=== PATIENT | male | born 1945 | race Caucasian/White ===

== ENCOUNTER 2017-09-30 09:48 | Day surgery (SDC) | payer MEDICARE, BC, OTHER ==
[2017-09-30] MEDS ORDERED: Sodium Chloride 0.9% 10 ML Syringe IV ONE (09:49)
[2017-09-30] MEDS ORDERED: Dexamethasone 4 MG/ML SDV IV ONE (09:49)
[2017-09-30] MEDS ORDERED: Midazolam 1 MG/ML 2 ML SDV IV ONE (09:49)
[2017-09-30] MEDS ORDERED: Acetaminophen 325 MG Tab PO PRN (10:00)
[2017-09-30] MEDS ORDERED: Ondansetron 4 MG/2 ML SDV IVPUSH PRN (10:00)
[2017-09-30] MEDS ORDERED: Phenylephrine 10% Ophth Soln 5 ML Bot EYELF PRN (10:00)
[2017-09-30] MEDS: Proparacaine 0.5% Ophth Soln 15 ML Bottle EYELF ONE (10:03)
[2017-09-30] MEDS: Povidone-Iodine 5% Sterile Ophth Soln 30 ML Bottle EYELF ONE (10:05)
[2017-09-30] MEDS: Moxifloxacin 0.5% Ophth Soln 3 ML Bottle EYELF ONE (10:06)
[2017-09-30] MEDS: Timolol Maleate 0.5% Ophth Soln 5 ML Bottle EYELF ONE (10:08)
[2017-09-30] MEDS: Phenylephrine 10% Ophth Soln 5 ML Bot EYELF ONE (10:08)
[2017-09-30] MEDS: Cataract Ophth Solution EYELF ONE (10:09)
[2017-09-30] MEDS: Sodium Chloride 0.9% 10 ML Syringe FLUSH PRN (10:15)
[2017-09-30] MEDS: Tetracaine HCl/PF 0.5% 4 ML Bottle EYELF ONE (11:02)
[2017-09-30] MEDS: Lidocaine 1% 30 ML SDV ONE (11:02)
[2017-09-30] MEDS: Dexamethasone/Neomycin/Polymyxin B Ophth Oint 3.5 GM Tube EYELF ONE (11:02)
[2017-09-30] MEDS: Apraclonidine 0.5% Ophth Soln 5 ML Bot EYELF ONE (11:03)
[2017-09-30] MEDS: Diclofenac Sodium 0.1% Ophth Soln 5 ML Bottle EYELF ONE (11:03)
[2017-09-30] MEDS: Balanced Salt Solution Ophth Irrig 500 ML Bottle IOCULAR ONE (11:03)
[2017-09-30] MEDS: Chondroitin Sulfate/Hyaluronate Sodium Ophth Inj 0.5 ML Syringe IOCULAR ONE (11:03)
[2017-09-30] MEDS: Vancomycin 500 MG SDV EYELF ONE (11:03)
[2017-09-30 13:27] VITALS: BP 117/75
--- NOTE | 2017-09-30 15:58 | OR ---
DATE: 09/30/2017 PREOPERATIVE DIAGNOSIS: Visually significant mixed cataract, left eye. POSTOPERATIVE DIAGNOSIS: Visually significant mixed cataract, left eye. PROCEDURE: Extracapsular cataract extraction with intraocular lens implant, left eye. ANESTHESIA: Local MAC. COMPLICATIONS: None. INDICATION: Mr. Isaacs was seen in the clinic. His clinical examination reveals visually significant mixed nuclear and cortical cataract. I explained options, I offered cataract surgery, and I explained risks associated including the potential for visual loss. He is symptomatic with difficulty reading, difficulty driving, and difficulty with bright lights and glare. He has requested cataract surgery with a toric implant. OPERATIVE DESCRIPTION: After informed consent was obtained and the risks, benefits, and alternatives were explained, the patient was brought to the operative suite and topical anesthesia was administered. The patient was then prepped and draped in the sterile fashion and attention was placed on the left eye. A sterile lid speculum was placed into the left eye to allow operative exposure. A full-thickness paracentesis was made in the temporal portion of the operative eye. Preservative-free lidocaine 0.1 mL was injected into the anterior chamber followed by viscoelastic. A full-thickness corneal incision was then made into the anterior chamber. A bent needle cystotome was used to create a small aby in the anterior capsule. The capsulorrhexis forceps were then used to create a 360-degree curvilinear capsulorrhexis. The nucleus was then removed using a phacoemulsification handpiece and the remaining cortical material was then removed with irrigation and aspiration handpiece. Following removal of the cortical material, the capsular bag was then inspected and noted to be free of any holes or tears. Viscoelastic was then injected into the capsular bag and the intraocular lens was inserted into the capsular bag. The implant was oriented to correspond with preoperative corneal caicedo made with the patient in the upright position. The viscoelastic material was then removed from both the anterior and posterior chambers and from behind the IOL. The lens and capsular bag were then reinspected. The IOL was well centered and the capsular bag intact. The wound and paracentesis sites were inspected and hydrated with balanced saline solution. Both were found to be self-sealing. The intraocular pressure was assessed digitally and found to be within normal range. A good red reflex was noted at the completion of the procedure. No complications occurred during the operation. At the completion of the procedure, Maxitrol, Voltaren, and Iopidine drops were placed into the operative eye. A sterile eye shield was placed over the operative eye and the patient was transported to the postoperative recovery area having tolerated the procedure well. Postoperative instructions were given along with a postoperative appointment. The patient was advised to call with any questions or concerns. [facility] /[id number]
== END 2017-09-30 12:15 | disposition home or self-care (01) ==
LOC: DL.SDS 09:48
PROVIDERS: ATTEND Ophthalmology
DX: H25.812 Combined forms of age-related cataract, left eye (principal); I25.10 Atherosclerotic heart disease of native coronary artery without angina pectoris; K21.9 Gastro-esophageal reflux disease without esophagitis; E78.5 Hyperlipidemia, unspecified; I10 Essential (primary) hypertension; G47.39 Other sleep apnea; Z90.49 Acquired absence of other specified parts of digestive tract
CPT/HCPCS: 00142; 66984; A9270; J1100; J2250; J3370; J7050; V2787

== ENCOUNTER 2017-10-07 08:35 | Day surgery (SDC) | payer MEDICARE, BC, OTHER ==
[2017-10-07] MEDS ORDERED: Sodium Chloride 0.9% 10 ML Syringe IV ONE (08:36)
[2017-10-07] MEDS ORDERED: Midazolam 1 MG/ML 2 ML SDV IV ONE (08:36)
[2017-10-07] MEDS ORDERED: Dexamethasone 4 MG/ML SDV IV ONE (08:36)
[2017-10-07] MEDS ORDERED: Phenylephrine 10% Ophth Soln 5 ML Bot EYERT ONE (09:00)
[2017-10-07] MEDS ORDERED: Cataract Ophth Solution EYERT ONE (09:00)
[2017-10-07] MEDS ORDERED: Ondansetron 4 MG/2 ML SDV IVPUSH PRN (09:00)
[2017-10-07] MEDS ORDERED: Sodium Chloride 0.9% 10 ML Syringe FLUSH PRN (09:00)
[2017-10-07] MEDS ORDERED: Phenylephrine 10% Ophth Soln 5 ML Bot EYERT PRN (09:00)
[2017-10-07] MEDS ORDERED: Proparacaine 0.5% Ophth Soln 15 ML Bottle EYERT ONE (09:00)
[2017-10-07] MEDS ORDERED: Povidone-Iodine 5% Sterile Ophth Soln 30 ML Bottle EYERT ONE ×2 (09:00→09:34)
[2017-10-07] MEDS ORDERED: Acetaminophen 325 MG Tab PO PRN (09:00)
[2017-10-07] MEDS ORDERED: Moxifloxacin 0.5% Ophth Soln 3 ML Bottle EYERT ONE (09:00)
[2017-10-07] MEDS ORDERED: Timolol Maleate 0.5% Ophth Soln 5 ML Bottle EYERT ONE (09:00)
[2017-10-07] MEDS ORDERED: Tetracaine HCl/PF 0.5% 4 ML Bottle EYERT ONE (09:33)
[2017-10-07] MEDS ORDERED: Lidocaine 1% 30 ML SDV ONE (09:34)
[2017-10-07] MEDS ORDERED: Apraclonidine 0.5% Ophth Soln 5 ML Bot EYERT ONE (09:34)
[2017-10-07] MEDS ORDERED: Balanced Salt Solution Ophth Irrig 500 ML Bottle IOCULAR ONE (09:35)
[2017-10-07] MEDS ORDERED: Vancomycin 500 MG SDV EYERT ONE (09:35)
[2017-10-07] MEDS ORDERED: Dexamethasone/Neomycin/Polymyxin B Ophth Oint 3.5 GM Tube EYERT ONE (09:35)
[2017-10-07] MEDS ORDERED: Chondroitin Sulfate/Hyaluronate Sodium Ophth Inj 0.5 ML Syringe IOCULAR ONE (09:36)
[2017-10-07 11:06] VITALS: BP 103/66
--- NOTE | 2017-10-07 11:06 | OR ---
DATE: 10/07/2017 PREOPERATIVE DIAGNOSIS: Visually significant mixed cataract, right eye. POSTOPERATIVE DIAGNOSIS: Visually significant mixed cataract, right eye. PROCEDURE: Extracapsular cataract extraction with intraocular lens implant, right eye. ANESTHESIA: Topical/local MAC. COMPLICATIONS: None. INDICATION: Mr. Isaacs was seen in the clinic. His clinical examination reveals mixed nuclear and central cortical cataract. He is symptomatic with complaints of blurred vision, difficulty seeing at distance, difficulty reading and driving. I offered cataract surgery and I explained risks preoperatively including the potential for infection, retinal detachment, loss of vision, need for additional surgery, amongst others. We discussed implant options. He has preexisting corneal astigmatism and he has requested a toric implant. OPERATIVE DESCRIPTION: After informed consent was obtained and the risks, benefits, and alternatives were explained, the patient was brought to the operative suite and topical anesthesia was administered. The patient was then prepped and draped in the sterile fashion and attention was placed on the right eye. A sterile lid speculum was placed into the right eye to allow operative exposure. A full-thickness paracentesis was made in the temporal portion of the operative eye. Preservative-free lidocaine 0.1 mL was injected into the anterior chamber followed by viscoelastic. A full-thickness corneal incision was then made into the anterior chamber. A bent needle cystotome was used to create a small aby in the anterior capsule. The capsulorrhexis forceps was then used to create a 360-degree curvilinear capsulorrhexis. The nucleus was then removed using a phacoemulsification handpiece and the remaining cortical material was then removed with irrigation and aspiration handpiece. Following removal of the cortical material, the capsular bag was then inspected and noted to be free of any holes or tears. Viscoelastic was then injected into the capsular bag and the intraocular lens was inserted into the capsular bag. The implant was oriented to correspond with preoperative corneal caicedo made with the patient in the upright position. The viscoelastic material was then removed from both the anterior and posterior chambers and from behind the IOL. The lens and capsular bag were then reinspected. The IOL was well centered and the capsular bag intact. The wound and paracentesis sites were inspected and hydrated with balanced saline solution. Both were found to be self-sealing. The intraocular pressure was assessed digitally and found to be within normal range. A good red reflex was noted at the completion of the procedure. No complications occurred during the operation. At the completion of the procedure, Maxitrol, Voltaren, and Iopidine drops were placed into the operative eye. A sterile eye shield was placed over the operative eye and the patient was transported to the postoperative recovery area having tolerated the procedure well. Postoperative instructions were given along with a postoperative appointment. The patient was advised to call with any questions or concerns. No complications occurred. [facility] /[id number]
== END 2017-10-07 10:51 | disposition home or self-care (01) ==
LOC: DL.SDS 08:35
PROVIDERS: ATTEND Ophthalmology
DX: H25.811 Combined forms of age-related cataract, right eye (principal); I10 Essential (primary) hypertension; I25.10 Atherosclerotic heart disease of native coronary artery without angina pectoris; E78.5 Hyperlipidemia, unspecified; G47.33 Obstructive sleep apnea (adult) (pediatric); Z90.49 Acquired absence of other specified parts of digestive tract; Z79.82 Long term (current) use of aspirin; Z79.899 Other long term (current) drug therapy; Z95.5 Presence of coronary angioplasty implant and graft; Z79.01 Long term (current) use of anticoagulants
CPT/HCPCS: 00142; 66984; A9270; J1100; J2250; J3370; J7050; V2787

== ENCOUNTER 2019-09-01 06:44 | Day surgery (SDC) | payer MEDICARE, BC, OTHER ==
[~2019-09-01 06:44] MED LIST: Dextrose 5%-0.45% NaCl 1,000 ML IV SCH; Midazolam 1 MG/ML 2 ML SDV ONE; Sodium Chloride 0.9% 10 ML Syringe FLUSH PRN; fentaNYL 100 MCG/2 ML SDV ONE
[2019-09-01] MEDS ORDERED: fentaNYL 100 MCG/2 ML SDV IV ONE ×3 (06:45→07:46)
[2019-09-01] MEDS ORDERED: Midazolam 1 MG/ML 2 ML SDV IV ONE ×3 (06:45→07:48)
[2019-09-01 08:32] VITALS: BP 98/60
[2019-09-01 10:50] VITALS: PULSE 66
--- NOTE | 2019-09-01 11:42 | OR ---
DATE: 09/01/2019 PROCEDURE: Esophagogastroduodenoscopy and multiple pinch biopsies. INSTRUMENT USED: GIF-HQ190 Olympus video panendoscope. PREMEDICATIONS: No oral or topical anesthesia used. Fentanyl 100 mcg intravenous, Versed 2 mg intravenous, nasal O2 cannula. The procedure was done under pulse oximetry, BP recording, and radiation monitor. INDICATION: The patient with longstanding heartburn and associated upper abdominal symptoms unexplained and not responsive to medical measures, on long- term PPI. Esophagogastroduodenoscopy is performed for detection of any active erosive lesions, [place] esophagus, and/or malignancy also under consideration, H pylori status to be determined, endoscopic hemostasis therapy if needed. PROCEDURE IN DETAIL: The scope was passed with ease. Adequate visualization of the esophagus was made from proximal to distal areas. No upper esophageal lesions identified. No distal esophageal stricture. No uphill or downhill esophageal varices. No Lauren-Bryant tear. Grade A erosive changes were noted by [place] criteria. No esophageal polyp or tumor mass identified. Small sliding hiatal hernia was noted. Z-line was seen at around 39 cm distal to the oral verge, configuration consistent with grade 1 by ZAP classification. No proximal gastric varices noted. Gastric fundus examination by retroflexion showed no polypoid lesions. No gastric ulcer, malignant mass, or vascular ectasia identified. Duodenal bulb showed no ulcer. Visualized second part of the duodenum was unremarkable. Multiple pinch biopsies were taken from the gastric antrum and proximal body and sent for PyloriTek test for H pylori, and if negative in an hour, the tissue is to be sent for histopathology. No bleeding was noted from any of the visualized areas at the completion of examination. Photographs were taken of the duodenal bulb, gastric antrum, fundus, and distal esophagus. IMPRESSION: 1. Small sliding hiatal hernia. 2. Grade A gastroesophageal reflux disease. The patient tolerated the procedure well. [facility] /[id number]
== END 2019-09-01 09:59 | disposition home or self-care (01) ==
LOC: DL.ENDO 06:44
PROVIDERS: ATTEND Internal Medicine Gastroenterology
DX: K44.9 Diaphragmatic hernia without obstruction or gangrene (principal); K21.9 Gastro-esophageal reflux disease without esophagitis; K22.10 Ulcer of esophagus without bleeding; B96.81 Helicobacter pylori [H. pylori] as the cause of diseases classified elsewhere; I10 Essential (primary) hypertension; E78.5 Hyperlipidemia, unspecified; I25.10 Atherosclerotic heart disease of native coronary artery without angina pectoris; R73.9 Hyperglycemia, unspecified; Z86.010 Personal history of colon polyps; Z90.79 Acquired absence of other genital organ(s); Z92.3 Personal history of irradiation; Z98.890 Other specified postprocedural states; Z90.89 Acquired absence of other organs; Z95.5 Presence of coronary angioplasty implant and graft
CPT/HCPCS: 43239; 87077; J2250; J3010; J7042

== ENCOUNTER 2020-01-12 05:46 | Day surgery (SDC) | payer MEDICARE, OTHER ==
[~2020-01-12 05:46] MED LIST changes: -Midazolam 1 MG/ML 2 ML SDV ONE; -fentaNYL 100 MCG/2 ML SDV ONE
[2020-01-12] MEDS ORDERED: fentaNYL 100 MCG/2 ML SDV IV ONE ×3 (05:47→06:59)
[2020-01-12] MEDS ORDERED: Midazolam 1 MG/ML 2 ML SDV IV ONE ×4 (05:47→07:03)
[2020-01-12] MEDS ORDERED: Midazolam 1 MG/ML 2 ML SDV ONE (06:45)
[2020-01-12] MEDS ORDERED: fentaNYL 100 MCG/2 ML SDV ONE (06:45)
--- NOTE | 2020-01-12 08:41 | OR ---
DATE: 01/12/2020 PROCEDURE: Total colonoscopy. INSTRUMENT USED: [id number]-H190DL Olympus video colonoscope. PREMEDICATIONS: Fentanyl 100 mcg intravenous, Versed 3 mg intravenous. Nasal O2 cannula. The procedure was done under pulse oximetry, BP recording, and weekday babysitter. INDICATION: The patient with previous colonic tubular adenoma. Surveillance colonoscopic examination is done for detection of any polypoid lesions and removal, endoscopic hemostasis therapy if needed. DESCRIPTION OF PROCEDURE: Initial rectal exam was unremarkable. Rigid anoscopy was normal. The colonoscope was passed with ease. Photograph was taken of the normal-appearing rectum. Few scattered diverticula were noted in the distal left colon along with deformity. The scope was passed with ease up to the ileocecal area. Photographs were taken of the normal-appearing cecum, identified by landmarks of appendiceal orifice and double-bulged ileocecal folds. No bleeding was noted from any of the visualized areas at the commencement of the examination. No stricture. No vascular ectasia. No large isolated ulcerations seen. No evidence of diffuse inflammatory bowel disease in the form of friability, contact bleeding, or ulcerations. No polyp or tumor mass identified. Probing the proximal sides of folds and flexures using adequate distention and clearing up the stool material, withdrawal of the scope was made, cecum to rectum time over 6 minutes. The bowel preparation was found to be adequate, [place] scale 3 in all the regions, total score 9. No bleeding was noted from any of the visualized areas at the completion of examination. IMPRESSION: Diverticulosis. The patient tolerated the procedure well. [facility] /[id number]
[2020-01-12 09:42] VITALS: BP 159/81; PULSE 54
== END 2020-01-12 09:20 | disposition home or self-care (01) ==
LOC: DL.ENDO 05:46
PROVIDERS: ATTEND Internal Medicine Gastroenterology
DX: Z12.11 Encounter for screening for malignant neoplasm of colon (principal); K57.30 Diverticulosis of large intestine without perforation or abscess without bleeding; I25.10 Atherosclerotic heart disease of native coronary artery without angina pectoris; E78.5 Hyperlipidemia, unspecified; I10 Essential (primary) hypertension; R73.9 Hyperglycemia, unspecified; Z90.49 Acquired absence of other specified parts of digestive tract; Z85.46 Personal history of malignant neoplasm of prostate; Z92.3 Personal history of irradiation; Z86.010 Personal history of colon polyps; Z98.890 Other specified postprocedural states; Z95.5 Presence of coronary angioplasty implant and graft; Z79.899 Other long term (current) drug therapy
CPT/HCPCS: G0105; J2250; J3010; J7042; G0121

== ENCOUNTER 2023-12-14 14:23 | Emergency (ER) | payer MEDICARE, OTHER ==
[2023-12-14 14:43] LABS: BASOPHILS PERCENT AUTO 0.2 % (0.0-1.0); EOSINOPHILS PERCENT AUTO 4.2 % (1.0-3.0); HEMOGLOBIN 15.1 g/dL (14.0-18.0); LYMPHOCYTES PERCENT AUTO 23.3 % (20.5-50.1); MEAN CORPUSCULAR HEMOGLOBIN 30.8 pg (27.0-34.0); MEAN CORPUSCULAR HGB CONC 34.3 g/dL (33.0-35.0); MEAN CORPUSCULAR VOLUME 89.8 fL (80-100); MONOCYTES PERCENT AUTO 15.1 % (2-8); NEUTROPHILS PERCENT AUTO 57.2 % (42.2-75.2); PLATELET COUNT,PLT 144 10^3/uL (150-450)
[2023-12-14] MEDS: Sodium Chloride 0.9% 10 ML Syringe FLUSH PRN (14:59)
[2023-12-14 15:05] LABS: A/G RATIO 1.3; ALBUMIN 3.8 g/dL (3.4-5.0); BILIRUBIN TOTAL 0.4 mg/dL (0.2-1.0); BUN/CREATININE RATIO 15.5 (No establ ref range); CALCIUM 9.1 mg/dL (8.5-10.1); CREATININE 1.42 mg/dL (0.70-1.30); EST CRCL DRUG DOSING (CG) 42.15 mL/min; MAGNESIUM 1.9 mg/dL (1.8-2.4); PROTEIN TOTAL,TP 6.8 g/dL (6.4-8.2)
[2023-12-14 15:10] LABS: INR 0.9 (0.9-1.2); PROTHROMBIN TIME 9.8 SEC (9.0-12.0)
[2023-12-14] MEDS: Sodium Chloride 0.9% 1,000 ML IV ONE (15:34)
[2023-12-14] MEDS: Aspirin 81 MG Tab.Chew PO ONE (15:34)
[2023-12-14] MEDS: Nitroglycerin 0.4 MG Tab.SL SL ONE (16:20)
[2023-12-14 16:48] VITALS: PULSE 62
[2023-12-14 17:01] VITALS: BP 137/81
[2023-12-14] MEDS: Heparin Sodium/0.45% NaCl 25,000 UNITS/500 ML BAG IV SCH (18:10)
[2023-12-14] MEDS: Heparin Sodium 5,000 Units/ML Vial IVPUSH ONE (18:12)
== END 2023-12-14 18:52 ==
LOC: DL.ED 14:23
DX: I25.110 Atherosclerotic heart disease of native coronary artery with unstable angina pectoris (principal); K21.9 Gastro-esophageal reflux disease without esophagitis; E78.00 Pure hypercholesterolemia, unspecified; I10 Essential (primary) hypertension; Z79.82 Long term (current) use of aspirin; Z79.02 Long term (current) use of antithrombotics/antiplatelets; Z79.899 Other long term (current) drug therapy; Z95.5 Presence of coronary angioplasty implant and graft
CPT/HCPCS: 36415; 71045; 80053; 83690; 83735; 84484; 85025; 85610; 93005; 96365; 99285; A9270; J1644; J7030; 93010; J3490